=== PATIENT | female | born 1955 | race Caucasian/White ===

== ENCOUNTER 2017-05-28 08:36 | Inpatient (IN) ==
[2017-05-28] MEDS ORDERED: *HR* Promethazine 25 MG/ML VIAL IVP PRN (09:03)
[2017-05-28] MEDS ORDERED: Famotidine 20 MG/2 ML VIAL IVP ONE (09:03)
[2017-05-28] MEDS ORDERED: *HR* Labetalol 20 MG/4 ML SYRINGE IVP PRN (09:09)
[2017-05-28] MEDS ORDERED: Acetaminophen IV 1,000 MG/100 ML INFUS..BTL IVPB ONE ×2 (09:13→21:26)
--- NOTE | 2017-05-28 09:14 | Anesthesia Evaluation PreOp ---
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 NO Sz in 10yrs), TIA (denies), Other (Fibromyalgia. Lumbar radiculopathy previously maintained on Zanaflex. Anxiety/depression maintained on Seroquel, Clonazepam, Paxil) Other Medical History: GERD (maintained on Protonix), Other (RA) Anesthesia History: No Prior Anesthetic Complications, Past Anesthesia (Hyster, Tubal Ligation, Dental extraction, B-CTR, Lipoma) Alcohol Use: none Drug use: unknown Medications and Allergies Aspirin 325 mg PO DAILY 05/27/15 [History] Carvedilol [Coreg] 3.125 mg PO BID 05/27/15 [History] Lisinopril [Zestril] 2.5 mg PO DAILY 05/27/15 [History] Paroxetine HCl [Paxil] 40 mg PO DAILY 05/27/15 [History] Phenytoin ER [Dilantin ER] 100 mg PO TID 05/27/15 [History] Quetiapine Fumarate [Seroquel] 300 mg PO HS 05/27/15 [History] clonazePAM [Klonopin] 1 mg PO BID PRN 05/27/15 [History] Atorvastatin [Lipitor] 40 mg PO HS 04/10/16 [History] Pantoprazole Sodium [Protonix] 40 mg PO DAILY 04/10/16 [History] Ranitidine HCl [Zantac] 300 mg PO QPM 04/10/16 [History] Acetaminophen w/Cod 300-30 mg [Tylenol w/Codeine #3] 1 each PO Q4HR #12 tablet 05/27/16 [Rx] Acetaminophen w/Cod 300-30 mg [Tylenol w/Codeine #3] 1 each PO Q4HR PRN [History] Meloxicam [Mobic] 15 mg PO DAILY #7 tab 06/25/16 [Rx] Orphenadrine [Norflex] 100 mg PO BID #14 tablet.er 06/25/16 [Rx] Allergies Iodinated Contrast- Oral and IV Dye [Iodinated Contrast Media - IV Dye] Adverse Reaction (Verified 05/27/16 16:51) Rash latex Adverse Reaction (Verified 05/27/16 16:51) Rash morphine Adverse Reaction (Verified 06/25/16 15:06) Rash - Meds/Allergy Pre-op Review Medications Reviewed: Yes Allergies Reviewed: Yes Beta Blockers on Current Med List: Yes (Carvedilol) If Beta Blockers taken, Date/Time (Last Dose taken): 05/28/2017 @ 0600 Anesthesia Results - Labs Laboratory Tests 11/14/16 05/26/17 05/26/17 09:27 14:15 14:15 WBC 6.8 Hgb 11.6 Hct 37.0 Plt Count 292 PT 10.5 INR 1.0 APTT 26.8 Sodium Potassium Chloride Carbon Dioxide BUN Creatinine Est GFR (Non-Af Amer) Est Mean Plasma Glucose 100 Hemoglobin A1c 5.1 05/26/17 14:15 WBC Hgb Hct Plt Count PT INR APTT Sodium 139 Potassium 4.6 H Chloride 107 Carbon Dioxide 24 BUN 17 Creatinine 0.87 Est GFR (Non-Af Amer) > 60 Est Mean Plasma Glucose Hemoglobin A1c - Imaging EKG: image reviewed (69bpm SR) Anesthesia Exam O2 Sat Height 1.6 m Height 1.6 m Weight 65.317 kg Weight 65.317 kg O2 Sat by Pulse Oximetry 98 Vital Signs Temp Pulse Resp BP Pulse Ox 98.9 F 67 18 129/70 98 05/28/17 08:56 05/28/17 08:56 05/28/17 08:56 05/28/17 08:56 05/28/17 08:56 Height: 5'3' Weight: 144# bmi = 26 NPO (# of Hours): MNoc - HEENT Pupil (Motor): Pupils equal, EOMI Mallampati: II Teeth: Missing, Edentulous, Poor dentition Oral Opening: Greater than 3 - TUTORING CLINICIAN LOC: Oriented TUTORING CLINICIAN Motor: Normal RUE, Normal LUE, Normal RLE, Normal LLE, Normal Face TUTORING CLINICIAN Sensory: Normal: RUE, LUE, RLE, LLE, Face - Cardiac Rhythm: Regular Murmur: None - Pulmonary Breath Sounds: bilateral Clear Respiratory Effort: Symmetrical Anesthesia Assess/Plan ASA Score: 3 (Sz d/o, HTN, Chol, Fibromyalgia, Anxiety/Depression, Smoker, COPD , DM, RA, GERD) Modified Boo Scale for Level of Consciousness: Cooperative, oriented, and tranquil Anesthetic Plan: General Monitoring Plan: Standard Monitors Recovery Plan: PACU Anes Supervising Prov Stmt: PT seen/evaluated, R&B discussed, questions answered and consent obtained. Britney Wang MD
[2017-05-28] MEDS ORDERED: Ondansetron 4 MG/2 ML VIAL ONE (09:50)
[2017-05-28] MEDS ORDERED: Dexamethasone 4 MG/ML VIAL ONE (09:50)
[2017-05-28] MEDS ORDERED: *HR* FentaNYL (PF) 100 MCG/2 ML VIAL ONE (09:50)
[2017-05-28] MEDS ORDERED: Lidocaine -MPF 2% 2 ML VIAL ONE (09:50)
[2017-05-28] MEDS ORDERED: Lidocaine -MPF 4% 5 ML AMPUL ONE (09:50)
[2017-05-28] MEDS ORDERED: *HR* Remifentanil 1 MG VIAL IVP ONE (09:50)
[2017-05-28] MEDS ORDERED: *HR* Midazolam HCl 2 MG/2 ML VIAL ONE (09:51)
[2017-05-28] MEDS ORDERED: *HR* Propofol 200 MG/20 ML VIAL IVP ONE (09:51)
[2017-05-28] MEDS ORDERED: Albuterol 2.5 MG/3 ML NEBULIZER ONE (09:57)
[2017-05-28] MEDS ORDERED: CeFAZolin Pre 2,000 MG/100 ML 2,000 MG/100 ML BAG IVPB ONE (10:01)
[2017-05-28] MEDS ORDERED: Albuterol 2.5 MG/3 ML NEBULIZER IH ONE (10:02)
[2017-05-28] MEDS: Ringers Solution, Lactated 1,000 ML IVC SCH (10:10)
--- NOTE | 2017-05-28 11:14 | History & Physical Report ---
Date of Encounter: 05/28/17 Time of Encounter: 11:13 24 Hour HP Update - Instructions Instructions: If the History and Physical is less than 30 days old and was completed prior to A.M. admission and or procedure and has NOT been updated on calendar day of procedure please complete this update prior to performing procedure. - Update Patient reports changes in Medical Condition: No Changes in examination, assessment, or condition: No Changes in Medication: No Preop tests/diagnostics Reviewed: Yes Pre-Op MRSA Screen: Negative Surgery Remains Indicated: Yes Consent for Planned Operative Procedure(s) Verified: Yes - Pre-Operative Checklist Preoperative Checklist Indicated: No Prophylactic Antibiotic Ordered: Yes Home Medications Include Beta Mike: Yes Beta Mike Taken Today (Day of Surgery): No Beta Mike Taken Yesterday (Day Prior to Surgery): Yes Is VTE Prophylaxis Indicated?: Yes
[2017-05-28] MEDS ORDERED: EPHEDrine 50 MG/ML VIAL ONE (12:49)
[2017-05-28] MEDS ORDERED: *HR* HYDROmorphone 2 MG/ML SYRINGE ONE (15:40)
[2017-05-28] MEDS ORDERED: *HR* Metoprolol 5 MG/5 ML VIAL IVP ONE (16:20)
[2017-05-28] MEDS: *HR* HYDROmorphone (PF) 1 MG/ML SYRINGE IVP PRN ×3 (16:55→17:25)
--- NOTE | 2017-05-28 17:44 | Anesthesia Evaluation Post Op ---
Date of Encounter: 05/28/17 Time of Encounter: 17:43 - Vital Signs Vital Signs: Vital Signs/O2 Sat/Glucose, Most Current Temp Pulse Resp BP Pulse Ox 05/28/17 17:20 77 16 126/75 94 05/28/17 17:10 98.3 F 76 16 123/67 94 05/28/17 17:00 79 16 109/81 93 05/28/17 16:50 75 16 130/65 96 05/28/17 16:40 97.8 F 80 16 145/94 94 - Lungs Lungs: Clear Ascult./Percussion - Airway Airway: Non-obstructed - Cardiovascular Regular Rate - Mental Status Mental Status: Asleep with brisk response to light stimulation - Pain Pain Scale: 2 - Nausea Vomiting Nausea Vomiting: Not Present - Hydration Hydration: NPO - Discharge PostOp Status: Transfer Patient to floor
[2017-05-28] MEDS ORDERED: *HR* OxyCODONE Immed Rel 5 MG TABLET PO PRN (18:55)
[2017-05-28] MEDS ORDERED: Naloxone 0.4 MG/ML INJ IVP PRN (18:55)
[2017-05-28] MEDS ORDERED: Ringers Solution, Lactated 1,000 ML IVC SCH (19:00)
[2017-05-28] MEDS ORDERED: Ondansetron 4 MG/2 ML VIAL IVP ONE (19:00)
[2017-05-28] MEDS ORDERED: Naloxone 0.4 MG/ML INJ IVP ONE (19:02)
[2017-05-28] MEDS ORDERED: Naloxone 0.4 MG/ML INJ ONE (19:03)
[2017-05-28] MEDS: ceFAZolin 2,000 MG in D5% in Water 100 ML IVPB SCH (23:23)
[2017-05-29] MEDS: Acetaminophen 325 MG TABLET PO PRN ×2 (01:49→21:38)
[2017-05-29 07:05] LABS: Basophils % 0.3 %; Eosinophils % 0.2 %; Hematocrit 30.5 % (35.3-44.9); Immature Granulocytes % 0.2 % (0-4); Lymphocytes # 2.8 K/mcL (0.6-4.6); Lymphocytes % 29.6 %; Mean Corpuscular HGB Conc 32.1 g/dL (31.6-35.5); Mean Corpuscular Hemoglobin 30.3 pg (28.0-33.3); Mean Corpuscular Volume 94.4 fL (83.0-100.0); Mean Platelet Volume 8.5 fL (9.4-12.4); Monocytes # 0.6 K/mcL (0.0-1.3); Monocytes % 6.1 %; Neutrophils # 5.9 K/mcL (1.6-8.9); Platelet Count 210 K/mcL (140-400); Red Blood Count 3.23 M/mcL (3.82-4.97); Segmented Neutrophils % 63.6 %
[2017-05-29 07:16] LABS: BUN/Creatinine Ratio 20 (6-26); Blood Urea Nitrogen 16 mg/dL (7-20); Calcium 7.9 mg/dL (8.6-10.8); Carbon Dioxide 22 mEq/L (19-29); Chloride 106 mEq/L (98-109); Glucose 75 mg/dL (70-99); Osmolality,Calculated 280 (280-300); Potassium 4.9 mEq/L (3.5-4.5); Sodium 135 mEq/L (136-145); eGFR For African Americans > 60 (> 60); eGFR For Non-African Americans > 60 (> 60)
[2017-05-29 07:21] LABS: Hemoglobin 9.8 g/dL (11.5-15.4)
[2017-05-29] MEDS ORDERED: clonazePAM 1 MG TABLET PO PRN (08:23)
[2017-05-29] MEDS: ceFAZolin 2,000 MG in D5% in Water 100 ML IVPB SCH (08:25)
[2017-05-29] MEDS: *HR* OxyCODONE Immed Rel 5 MG TABLET PO PRN ×4 (08:25→23:36)
[2017-05-29] MEDS: Famotidine 20 MG TABLET PO SCH ×2 (08:44→21:23)
[2017-05-29] MEDS: Aspirin 325 MG TABLET PO SCH (08:44)
[2017-05-29] MEDS: Loratadine 10 MG TABLET PO SCH (08:45)
[2017-05-29] MEDS: (Omega-3/Dha/Epa/Fish Oil [Fish Oil 1,000 Mg Softgel]) PO SCH (08:45)
[2017-05-29] MEDS: Ringers Solution, Lactated 1,000 ML IVC SCH (12:19)
[2017-05-29] MEDS: *HR* HYDROmorphone (PF) 1 MG/ML SYRINGE IVP PRN ×2 (16:12→21:23)
[2017-05-29] MEDS: Melatonin 3 MG TABLET PO SCH (21:24)
[2017-05-30] MEDS: *HR* HYDROmorphone (PF) 1 MG/ML SYRINGE IVP PRN ×5 (01:47→19:15)
[2017-05-30] MEDS: *HR* OxyCODONE Immed Rel 5 MG TABLET PO PRN ×5 (03:45→20:50)
[2017-05-30] MEDS: Aspirin 325 MG TABLET PO SCH (08:06)
[2017-05-30] MEDS: Loratadine 10 MG TABLET PO SCH (08:07)
[2017-05-30] MEDS: Famotidine 20 MG TABLET PO SCH ×2 (08:08→20:50)
[2017-05-30] MEDS: (Omega-3/Dha/Epa/Fish Oil [Fish Oil 1,000 Mg Softgel]) PO SCH (08:08)
[2017-05-30] MEDS: Ringers Solution, Lactated 1,000 ML IVC SCH (10:57)
--- NOTE | 2017-05-30 15:16 | Spine Progress Note ---
Date of Encounter: 05/29/17 Time of Encounter: 14:05 Subjective Principal diagnosis: Spondylolisthesis, lumbar stenosis Interval history: The patient is without complaints. Afebrile vital signs are stable. Dressing is clean dry and intact. Neurovascularly intact with regard to bilateral lower extremities. Fires all upper and lower extremity motor groups. . Assessment : stable. Plan mobilize ,continue analgesics, discharge planning. Objective Vital signs: Vital Signs Temp Pulse Resp BP Pulse Ox 05/30/17 11:28 99.4 F 95 17 103/64 93 05/30/17 08:26 98.9 F 102 20 117/67 94 05/30/17 07:32 97 05/30/17 05:20 100.1 F H 96 21 119/75 97 05/30/17 01:36 98.7 F 92 13 115/79 97 05/30/17 01:10 98.8 F 71 17 107/73 93 05/29/17 23:00 98.5 F 92 15 110/73 98 05/29/17 22:21 97.4 F L 94 17 132/74 95 05/29/17 21:42 99.2 F 104 14 98 05/29/17 21:21 100.4 F H 102 14 122/70 96 Intake and Output 05/29/17 05/30/17 05/30/17 23:59 07:59 15:59 Intake Total 25 / 25 240 / 240 Output Total 500 / 500 250 / 250 Balance -475 / -475 -250 / -250 240 / 240 Intake: Oral 25 / 25 240 / 240 Output: Urine 500 / 500 250 / 250 Other: Meal Lunch Percent of Meal Consumed 20% # Voids 1 - Labs CBC & BMP: 05/29/17 05:54 05/29/17 05:54 Labs: Abnormal lab results RBC 3.23 M/mcL (3.82-4.97) L 05/29/17 05:54 Hgb 9.8 g/dL (11.5-15.4) L D 05/29/17 05:54 Hct 30.5 % (35.3-44.9) L 05/29/17 05:54 MPV 8.5 fL (9.4-12.4) L 05/29/17 05:54 Sodium 135 mEq/L (136-145) L 05/29/17 05:54 Potassium 4.9 mEq/L (3.5-4.5) H 05/29/17 05:54 POC Glucose 99 (58-89) H 05/28/17 15:16 Calcium 7.9 mg/dL (8.6-10.8) L 05/29/17 05:54 Consult Discharge Plan - Plan Referrals: Luana William, CUSTOMER LIAISON [Primary Care Provider] -
--- NOTE | 2017-05-30 15:17 | Spine Progress Note ---
Date of Encounter: 05/30/17 Time of Encounter: 15:16 Subjective Principal diagnosis: Spondylolisthesis, lumbar stenosis Interval history: The patient is without complaints. Afebrile vital signs are stable. Incision is clean dry and intact. Neurovascularly intact with regard to bilateral lower extremities. Fires all upper and lower extremity motor groups. . Assessment : stable. Plan mobilize ,continue analgesics, discharge planning. Objective Vital signs: Vital Signs Temp Pulse Resp BP Pulse Ox 05/30/17 11:28 99.4 F 95 17 103/64 93 05/30/17 08:26 98.9 F 102 20 117/67 94 05/30/17 07:32 97 05/30/17 05:20 100.1 F H 96 21 119/75 97 05/30/17 01:36 98.7 F 92 13 115/79 97 05/30/17 01:10 98.8 F 71 17 107/73 93 05/29/17 23:00 98.5 F 92 15 110/73 98 05/29/17 22:21 97.4 F L 94 17 132/74 95 05/29/17 21:42 99.2 F 104 14 98 05/29/17 21:21 100.4 F H 102 14 122/70 96 Intake and Output 05/29/17 05/30/17 05/30/17 23:59 07:59 15:59 Intake Total 25 / 25 240 / 240 Output Total 500 / 500 250 / 250 Balance -475 / -475 -250 / -250 240 / 240 Intake: Oral 25 / 25 240 / 240 Output: Urine 500 / 500 250 / 250 Other: Meal Lunch Percent of Meal Consumed 20% # Voids 1 - Labs CBC & BMP: 05/29/17 05:54 05/29/17 05:54 Labs: Abnormal lab results RBC 3.23 M/mcL (3.82-4.97) L 05/29/17 05:54 Hgb 9.8 g/dL (11.5-15.4) L D 05/29/17 05:54 Hct 30.5 % (35.3-44.9) L 05/29/17 05:54 MPV 8.5 fL (9.4-12.4) L 05/29/17 05:54 Sodium 135 mEq/L (136-145) L 05/29/17 05:54 Potassium 4.9 mEq/L (3.5-4.5) H 05/29/17 05:54 POC Glucose 99 (58-89) H 05/28/17 15:16 Calcium 7.9 mg/dL (8.6-10.8) L 05/29/17 05:54 Consult Discharge Plan - Plan Referrals: Luana William, ELECT[employer] RESOURCES LIBRARIAN [Primary Care Provider] -
--- NOTE | 2017-05-30 15:19 | Discharge Summary ---
Date of Encounter: 05/30/17 Time of Encounter: 15:17 - Discharge Diagnosis (1) Spondylolisthesis Priority: Primary Status: Chronic Qualifiers: Spinal region: lumbar Qualified Code(s): M43.16 - Spondylolisthesis, lumbar region (2) Lumbar stenosis Priority: Secondary Status: Chronic - Discharge Medications Prescriptions: OxyCODONE Immed Rel [Roxicodone 5 MG] 5 mg PO Q4HR PRN #60 tab PRN Reason: Severe Pain Home Medications: Aspirin 325 mg PO DAILY 05/27/15 [History] Carvedilol [Coreg] 3.125 mg PO BID 05/27/15 [History] Lisinopril [Zestril] 2.5 mg PO DAILY 05/27/15 [History] Paroxetine HCl [Paxil] 40 mg PO DAILY 05/27/15 [History] Phenytoin ER [Dilantin ER] 100 mg PO TID 05/27/15 [History] Quetiapine Fumarate [Seroquel] 300 mg PO HS 05/27/15 [History] clonazePAM [Klonopin] 1 mg PO BID PRN 05/27/15 [History] Atorvastatin [Lipitor] 40 mg PO HS 04/10/16 [History] Pantoprazole Sodium [Protonix] 40 mg PO DAILY 04/10/16 [History] Ranitidine HCl [Zantac] 300 mg PO QPM 04/10/16 [History] Albuterol Sulfate [Albuterol Inhaler] 2 puff IH Q4HR PRN 05/28/17 [History] Loratadine [Allergy Relief] 10 mg PO DAILY 05/28/17 [History] Melatonin 10 mg PO HS 05/28/17 [History] Mason-3/Dha/Epa/Fish Oil [Fish Oil 1,000 mg Softgel] 1 each PO DAILY 05/28/17 [ History] OxyCODONE Immed Rel [Roxicodone 5 MG] 5 mg PO Q4HR PRN #60 tab 05/30/17 [Rx] Allergies/Adverse Reactions: Allergies Iodinated Contrast- Oral and IV Dye [Iodinated Contrast Media - IV Dye] Adverse Reaction (Verified 05/28/17 10:32) Difficulty Breathing latex Adverse Reaction (Verified 05/28/17 10:32) Itching morphine Adverse Reaction (Verified 05/28/17 10:32) Unconscious pregabalin [From Lyrica] Adverse Reaction (Verified 05/28/17 10:32) Hallucinating tramadol [From Ultram] Adverse Reaction (Verified 05/28/17 10:32) Nausea - Impressions ITS Impressions Lumbar Spine X-Ray 05/28/17 16:04 IMPRESSION: Postsurgical changes posterior fusion L2 through L5. No acute process. D/ / Shawnee Rosales MD / Shawnee Rosales MD Interpreting Provider: Shawnee Rosales MD Fluoroscopy 05/28/17 16:05 IMPRESSION: Intraprocedural fluoroscopic spot images as above. See separate procedure report for more information. D/ / 05/28/2017 22:30:37 Karan Grubbs MD / alfred Interpreting Provider: Karan Grubbs MD Lumbar Spine X-Ray 05/30/17 10:05 IMPRESSION: No acute complication status post L2-L5 posterior fusion and decompression. D/ / 05/30/2017 07:58:12 Karan Grubbs MD / [facility] Interpreting Provider: Karan Grubbs MD Date of admission: 05/28/17 18:06 Primary care physician: Luana William CNP Consults: 05/28/17 18:43 Consult to Pastoral Services [CONS] Routine Comment: 05/28/17 19:00 Consult to Occupational Therapy [CONS] Routine Comment: Evaluate, develop and implement POC Reason for Consult: eval Consult to Physical Therapy [CONS] Routine Comment: Evaluate, develop and implement POC Reason for Consult: eval Consult to Spine Navigator [CONS] [CONS] Routine - Patient Status Disposition: Home Health Service Condition: Good Functional capacity at discharge: uses cane/walker Overall status at discharge: patient is progressing back to baseline - Discharge Instructions Follow Up With: Luana William CNP [Primary Care Provider] - - Diet and Activity Activity: as per physical therapy Diet: advance to your usual diet - Hospital Course Hospital course: Ms. Gabriel is a 61 year old female The patient had an uneventful postoperative course. Progressed from intravenous analgesic needs to oral analgesic needs only. Remained neurovascularly intact and mobilized satisfactorily. All intraoperative and/or postoperative radiographic studies were satisfactory. Patient is discharged with plan for rehabilitation and follow-up in 2 weeks post discharge on analgesic medication and patient's home medications. - Time Spent with Patient Total time spent providing and/or coordinating discharge services: - VTE Documentation of Mechanical Device: Intermittent pneumatic compression device
[2017-05-30] MEDS: Acetaminophen 325 MG TABLET PO PRN (16:46)
[2017-05-30] MEDS: Melatonin 3 MG TABLET PO SCH (20:49)
[2017-05-31 00:33] VITALS: BP 104/65
[2017-05-31] MEDS: Acetaminophen 325 MG TABLET PO PRN (00:51)
[2017-05-31] MEDS: *HR* OxyCODONE Immed Rel 5 MG TABLET PO PRN ×3 (00:51→09:08)
[2017-05-31] MEDS: *HR* HYDROmorphone (PF) 1 MG/ML SYRINGE IVP PRN (03:32)
--- NOTE | 2017-06-03 13:43 | Orthopedic Operative Note ---
Date of procedure: 05/28/17 Pre-op diagnosis: Degenerative scoliosis, lumbar stenosis, lumbar radiculopathy Post-op diagnosis: same Operation/Findings: Posterior lumbar interbody fusion L2-L5: The patient successfully underwent general endotracheal anesthesia. The patient was given antibiotics prior to the start of the procedure. Compression boots and stockings were used for deep vein thrombosis prophylaxis. A Cisneros catheter was placed. Leads for neuro monitoring were placed on the upper and lower extremities. This included the cranium. The neuro monitoring personnel confirmed there were satisfactory readings prior to the start of the procedure. The patient was turned prone on the Jose Elias table. The back was prepped and draped in the usual sterile fashion. An incision was was marked and centered over the involved L2-L5 levels in the mid line. The incision was deepened through the lumbar fascia. Bovie cautery and Siddiqui elevators were used to reflect the paraspinal musculature at the lateral extent of the transverse processes of the involved L2 -L5 levels. Bernice clamps were placed over the spinous processes. An intraoperative lateral fluorograph was obtained. A conversation was held between the surgeon and radiologist and both confirmed we had the correct operative levels. We then placed pedicle screws in standard fashion with the aid of fluoroscopy and anatomic landmarks. Briefly a starter awl was used. A gearshift was subsequently used to enter the ferry pilot hole via a transpedicular route into the vertebral body. The ferry pilot hole was tapped with an undersized instrument, and subsequently seven 6.5 x 40 mm pedicle screws were placed bilaterally at the indicated L3-L5 levels. A unilateral pedicle screw was placed on the right at L2. The left-sided L2 screw was omitted due to concerns of screw fixation. The screws were tested with the aid of the neurologic monitoring staff via pedicle screw stimulation. All reading suggested there was no significant cortical wall breech. The screws were also evaluated fluoro - graphically and appeared to be in satisfactory position. We then turned our attention to the decompression of L2-L5 portion of the procedure. We removed the supraspinous and interspinous ligaments and subsequently the insertion of the ligamentum flavum on the undersurface of the proximal L4 lamina was dislodged with a curette. We then removed the ligamentum flavum as well as undercut the facets at this L4-5 level to decompress the lateral recesses. We also performed a L4 laminectomy. After the decompression which was over and above that which was required to place the interbody graft, the foramen and traversing roots at this level were found to be free and patent. We also took part of the medial facet in order to aid in the decompression. We moved proximally and subsequently decompressed the L3-4 and L2-3 levels in standard fashion. This included undercutting of the facets at these levels, removing the ligamentum flavum, and performing and L3 and partial L2 laminectomy. Satisfied with the decompression, we then protected the neural elements including the thecal sac and traversing nerve root on the right at the L4-5 level with a dural retractor. We made an annulotomy into the L4-5 disc space and then removed entire disc material using Pituitary instruments. We trialed various size grafts after the endplates were prepared for graft insertion. A 10 x 26 enter body graft fit well within the 45disc space. We obtained some bone from the right posterior superior iliac spine through us a separate incision and combined with this with the bone which we had saved from the L2, L3 , and L4 laminectomy portion of the procedure. This autograft bone was first placed in the anterior portion of the L4-5 disc space and additional bone was placed within the interbody graft spacer. We then placed the interbody graft spacer obliquely across the L4-5 disc space towards the midline while protecting the neural elements with a root retractor. When the graft was found to be in satisfactory position the commercial announcer was removed. We then copiously irrigated the wound. We then decorticated the transverse processes as well as the facet joints of the involved L2-L5 levels to aid in the posterolateral fusion. We placed autograft bone in the lateral gutters over these regions. We then placed rods within the screw heads of the involved L2-L5 levels and first locked the distal screws and then subsequently locked the proximal screws so as to improve and reduce the spondylolisthesis previously seen. We then closed the wound in layers with 1 Vicryl for the fascia, 2-0 Vicryl. Subcutaneous tissue, and Dermabond was used for skin closure. Sterile dressings were placed over the wound. The patient was turned supine on a hospital bed and extubated. All sponge instruments and needle counts were correct at the end of the procedure. The patient tolerated the procedure well without complications. Anesthesia: GETA Surgeon: Jonathan Fagan Jr Estimated blood loss (cc): 300 Condition: stable Disposition: PACU
== END 2017-05-31 10:12 | disposition home health service (06) | DRG 304 ==
LOC: SAMDAY 08:36 → 3NENU 18:06
PROVIDERS: ADMIT Orthopaedic Surgery Orthopaedic Surgery of the Spine; ATTEND Orthopaedic Surgery Orthopaedic Surgery of the Spine